=== PATIENT | female | born 1960 | race Caucasian/White ===

== ENCOUNTER 2016-11-09 00:05 | Emergency (ER) | payer MEDICAID, OTHER ==
[~2016-11-09] VITALS: Ht 165.1 cm; Wt 56.7 kg
--- NOTE | 2016-11-09 00:16 | NUR ---
TO BED 4 AMBULATORY C/O INTERMITTENT LT SIDE CP X 1 WK, WORSE TODAY, RADIATES TO LT UPPER BACK. PT APPEARS ANXIOUS. PT AAOX4 NO ACUTE DISTRESS NOTED, RESP EVEN AND UNLABORED. PLACE PT ON CARDIAC MONITORING, CONTINUOUS POX. PENDING ER MD PACHECO.
--- NOTE | 2016-11-09 00:22 | NUR ---
LAB CALLED FOR BLOOD DRAW.
[2016-11-09 00:41] LABS: BASOPHILS % (AUTO) 0.4 % (0.0-2.0); EOSINOPHILS # (AUTO) 0.3 /CMM (0.0-0.7); EOSINOPHILS % (AUTO) 4.3 % (0.0-6.0); HEMATOCRIT 34 % (33-45); HEMOGLOBIN 11.6 g/dL (11.5-14.8); LYMPHOCYTES # (AUTO) 2.5 /CMM (0.8-4.8); LYMPHOCYTES % (AUTO) 37.6 % (20.0-44.0); MEAN CORPUSCULAR HEMOGLOBIN 31 PG (26.0-33.0); MEAN CORPUSCULAR HGB CONC 34 g/dl (31.0-36.0); MEAN CORPUSCULAR VOLUME 91 fL (82-100); MONOCYTES # (AUTO) 0.5 /CMM (0.1-1.30); MONOCYTES % (AUTO) 7.6 % (2.0-12.0); NEUTROPHILS # (AUTO) 3.4 /CMM (1.8-8.9); NEUTROPHILS % (AUTO) 50.1 % (43.0-81.0); PLATELET COUNT (AUTO) 220 /CMM (150-450); RDW COEFFICIENT OF VARIATION 13.3 (11.5-15.0); RED BLOOD CELL COUNT(AUTO) 3.76 MIL/uL (4.0-5.2); WHITE BLOOD COUNT (AUTO) 6.7 K/uL (4.3-11.0)
--- NOTE | 2016-11-09 00:47 | NUR ---
Jodi mccurdy in ED - 11/09/16 at 0048 by KALI REPORT CALLED TO [facility]. WILL TRANSPORT PT VIA ACLS PROTOCOL.
[2016-11-09 00:51] LABS: CALCIUM, SERUM 8.2 mg/dL (8.5-10.1); CARBON DIOXIDE 25 mmol/L (21-32); CHLORIDE 109 mmol/L (98-107); CREATININE 0.9 mg/dL (0.6-1.3); GFR 65 mL/min (>60); GLUCOSE 113 mg/dL (74-106); POTASSIUM 3.9 mmol/L (3.5-5.1); SODIUM SERUM 145 mmol/L (136-145); UREA NITROGEN, BLOOD 13 mg/dL (7-18)
[2016-11-09] MEDS ORDERED: ASPIRIN 81 MG TAB.CHEW ONE (00:53)
[2016-11-09] MEDS ORDERED: FAMOTIDINE (20 MG) 20 MG TABLET ONE (00:53)
[2016-11-09 00:58] LABS: TROPONIN I < 0.017 ng/mL (0.00-0.056)
[2016-11-09] MEDS: FAMOTIDINE (20 MG) 20 MG TABLET PO ONE (00:59)
[2016-11-09] MEDS: ASPIRIN 325 MG TABLET PO ONE (00:59)
--- NOTE | 2016-11-09 01:26 | NUR ---
PT APPEARS ASLEEP, NO ACUTE DISTRESS NOTED, RESP EVEN AND UNLABORED. CALL LIGHT WITHIN REACH. WILL CONTINUE TO MONITOR PT CLOSELY.
--- NOTE | 2016-11-09 03:06 | NUR ---
pt pain free at this time, pending repeat troponin.
--- NOTE | 2016-11-09 04:15 | NUR ---
Patient discharged to home in stable condition. Written and verbal after care instructions given. Patient verbalizes understanding of instruction. ambulatory with a steady gait noted. pt aaox4 no acute distress noted, resp even and unlabored.
[2016-11-09 04:17] VITALS: BP 101/71
== END 2016-11-09 04:18 | disposition home or self-care (01) ==
LOC: ER 00:09
DX: R07.89 Other chest pain (principal); F41.9 Anxiety disorder, unspecified; F32.9 Major depressive disorder, single episode, unspecified; F17.200 Nicotine dependence, unspecified, uncomplicated
CPT/HCPCS: 36415; 71010; 80048; 84484 ×2; 85025; 93005 ×2; 99285; A4606; Z7610

== ENCOUNTER 2016-12-02 01:32 | Emergency (ER) | payer MEDICAID ==
[~2016-12-02] VITALS: Ht 165.1 cm; Wt 65.8 kg
--- NOTE | 2016-12-02 01:35 | NUR ---
to bed 1 ambulatory c/o L shoulder pain since yesterday, pain worse on movement. pt aaox4 no acute distress noted, resp even and unlabored. pending er md quintero.
--- NOTE | 2016-12-02 01:36 | NUR ---
er md at bedside to eval pt with orders received.
--- NOTE | 2016-12-02 02:04 | NUR ---
er md at bedside for trigger point injection to L shoulder.
--- NOTE | 2016-12-02 02:26 | NUR ---
blood drawn by development officer.
[2016-12-02] MEDS ORDERED: BUPIVACAINE 0.25% 75 MG/30 ML VIAL IJ ONE (02:30)
[2016-12-02] MEDS ORDERED: ASPIRIN 81 MG TAB.CHEW PO ONE (02:30)
[2016-12-02 02:31] LABS: BASOPHILS % (AUTO) 0.4 % (0.0-2.0); EOSINOPHILS # (AUTO) 0.4 /CMM (0.0-0.7); EOSINOPHILS % (AUTO) 4.8 % (0.0-6.0); HEMATOCRIT 35 % (33-45); HEMOGLOBIN 11.7 g/dL (11.5-14.8); LYMPHOCYTES # (AUTO) 3.2 /CMM (0.8-4.8); LYMPHOCYTES % (AUTO) 40.2 % (20.0-44.0); MEAN CORPUSCULAR HEMOGLOBIN 30 PG (26.0-33.0); MEAN CORPUSCULAR HGB CONC 34 g/dl (31.0-36.0); MEAN CORPUSCULAR VOLUME 91 fL (82-100); MONOCYTES # (AUTO) 0.5 /CMM (0.1-1.30); NEUTROPHILS # (AUTO) 3.8 /CMM (1.8-8.9); NEUTROPHILS % (AUTO) 48.6 % (43.0-81.0); PLATELET COUNT (AUTO) 234 /CMM (150-450); RED BLOOD CELL COUNT(AUTO) 3.84 MIL/uL (4.0-5.2); WHITE BLOOD COUNT (AUTO) 7.9 K/uL (4.3-11.0)
[2016-12-02 02:41] LABS: CALCIUM, SERUM 8.5 mg/dL (8.5-10.1); CARBON DIOXIDE 27 mmol/L (21-32); CHLORIDE 105 mmol/L (98-107); CREATININE 0.8 mg/dL (0.6-1.3); GFR 74 mL/min (>60); GLUCOSE 109 mg/dL (74-106); POTASSIUM 3.4 mmol/L (3.5-5.1); SODIUM SERUM 141 mmol/L (136-145); UREA NITROGEN, BLOOD 17 mg/dL (7-18)
[2016-12-02] MEDS ORDERED: ASPIRIN 81 MG TAB.CHEW ONE (02:47)
[2016-12-02 02:50] LABS: TROPONIN I < 0.017 ng/mL (0.00-0.056)
[2016-12-02 04:03] VITALS: BP 104/73
== END 2016-12-02 04:03 | disposition home or self-care (01) ==
LOC: ER 01:34
DX: M25.512 Pain in left shoulder (principal); F32.9 Major depressive disorder, single episode, unspecified; F41.9 Anxiety disorder, unspecified; F17.200 Nicotine dependence, unspecified, uncomplicated; Z79.82 Long term (current) use of aspirin
CPT/HCPCS: 36415; 71010-TC; 80048-TC; 84484-TC; 85025-TC; A4606; Z7610

== ENCOUNTER 2016-12-05 13:14 | Emergency (ER) | payer MEDICAID ==
[~2016-12-05] VITALS: Ht 167.6 cm; Wt 63.5 kg
--- NOTE | 2016-12-05 13:29 | NUR ---
PT CAME IN FROM URGENT CARE FOR DIZZINESS SINCE LAST NIGHT. REPORTS THAT SHE HASN'T BEEN EQATING GOOD LATELY. MD AT FOR EVAL. VSS. SAFETY AND COMFORT MEASURES PROVIDED. WILL MONITOR.
--- NOTE | 2016-12-05 14:19 | NUR ---
URINE SAMPLE OBTAINED, SENT.
[2016-12-05 14:48] LABS: APPEARANCE,URINE Clear (CLEAR); BILIRUBIN,URINE Negative (NEGATIVE); BLOOD, URINE Small Ery/uL (NEGATIVE); COLOR,URINE Yellow (YELLOW); KETONES,URINE Negative (NEGATIVE); LEUKOCYTE ESTERASE ,URINE Negative (NEGATIVE); NITRITE, URINE Negative (NEGATIVE); PH,URINE 8.5 (5.0-8.0); PROTEIN,URINE Negative (NEGATIVE); UGLUCOSE Negative (NEGATIVE); UROBILINOGEN,URINE 0.2 EU/dL (0.2)
--- NOTE | 2016-12-05 14:50 | NUR ---
Patient discharged to home in stable condition. Written and verbal after care instructions given. Patient verbalizes understanding of instruction. Pt ambulatory with a steady gait.
[2016-12-05 14:58] LABS: ADD URINE CULTURE NO; BACTERIA,URINE Few /HPF (None Seen); SQUAMOUS EPITHELIAL CELL,UR Few /HPF (None Seen)
--- NOTE | 2016-12-05 15:20 | NUR ---
CALLED NUTRITION FOR SANDWICH
--- NOTE | 2016-12-05 15:25 | NUR ---
PT REQUESTED FOR FOOD AND DRINK- EATING AT BS.
[2016-12-05 15:33] VITALS: BP 136/74
== END 2016-12-05 15:39 | disposition home or self-care (01) ==
LOC: ER 13:18
DX: N39.0 Urinary tract infection, site not specified (principal); R42 Dizziness and giddiness; F32.9 Major depressive disorder, single episode, unspecified; F41.9 Anxiety disorder, unspecified; F17.200 Nicotine dependence, unspecified, uncomplicated
CPT/HCPCS: 81000-TC; A4606; Z7610

== ENCOUNTER 2019-01-13 03:37 | Emergency (ER) | payer BC, MEDICAID, OTHER ==
[~2019-01-13] VITALS: Ht 165.1 cm; Wt 62.6 kg
--- NOTE | 2019-01-13 03:45 | NUR ---
Note kaz in EDM - 01/13/19 at 0420 by FRED PT TAMMIE C/O ABD PAIN W/ BLOOD IN URINE SINCE 199 TODAY. PT AXO4. RESPIRATIONS EVEN AND UNLABORED. 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
--- NOTE | 2019-01-13 03:45 | NUR ---
PT BIBSELF COMPLAINING OF LOWER ABD PAIN SINCE 199, WITH BLOOD IN URINE. PT AXO4. RESPIRATIONS EVEN AND UNLABORED. PT PUT ON THE BULK SAUSAGE CASING TIER OFF AND PULSE OX.
--- NOTE | 2019-01-13 03:47 | NUR ---
PT AMBULATORY WITH STEADY GAIT TO BATHROOM. URINE SAMPLE OBTAINED.
--- NOTE | 2019-01-13 03:57 | NUR ---
TAYLOR GASPAR AT BEDSIDE.
[2019-01-13] MEDS ORDERED: ONDANSETRON HCL/PF 4 MG/2 ML VIAL IVP ONE (04:00)
[2019-01-13] MEDS ORDERED: KETOROLAC TROMETHAMINE INJ 30 MG/ML VIAL IV ONE (04:00)
[2019-01-13] MEDS ORDERED: IV NS 0.9% 1,000 ML BAG IV ONE (04:00)
[2019-01-13] MEDS ORDERED: KETOROLAC TROMETHAMINE 15 MG/ML VIAL ONE (04:05)
[2019-01-13] MEDS ORDERED: ONDANSETRON HCL/PF 4 MG/2 ML VIAL ONE (04:05)
[2019-01-13 04:15] LABS: BASOPHILS # (AUTO) 0.1 /CMM (0.0-0.2); EOSINOPHILS % (AUTO) 2.9 % (0.0-6.0); HEMATOCRIT 39 % (33-45); HEMOGLOBIN 13.6 g/dL (11.5-14.8); LYMPHOCYTES # (AUTO) 2.8 /CMM (0.8-4.8); LYMPHOCYTES % (AUTO) 39.3 % (20.0-44.0); MEAN CORPUSCULAR HGB CONC 35 g/dl (31.0-36.0); MEAN CORPUSCULAR VOLUME 91 fL (82-100); MONOCYTES # (AUTO) 0.5 /CMM (0.1-1.30); MONOCYTES % (AUTO) 7.6 % (2.0-12.0); NEUTROPHILS # (AUTO) 3.5 /CMM (1.8-8.9); NEUTROPHILS % (AUTO) 49.2 % (43.0-81.0); PLATELET COUNT (AUTO) 261 /CMM (150-450); RED BLOOD CELL COUNT(AUTO) 4.32 MIL/uL (4.0-5.2)
[2019-01-13 04:15] LABS: APPEARANCE,URINE Turbid (CLEAR); BILIRUBIN,URINE Negative (NEGATIVE); BLOOD, URINE Large Ery/uL (NEGATIVE); COLOR,URINE Red (YELLOW); KETONES,URINE Negative (NEGATIVE); LEUKOCYTE ESTERASE ,URINE Small (NEGATIVE); NITRITE, URINE Positive (NEGATIVE); PROTEIN,URINE >=300 mg/dl (NEGATIVE); UGLUCOSE Negative (NEGATIVE); UROBILINOGEN,URINE 0.2 EU/dL (0.2)
[2019-01-13 04:23] LABS: CREATININE 0.8 mg/dL (0.6-1.3); POTASSIUM 3.8 mmol/L (3.5-5.1)
--- NOTE | 2019-01-13 04:23 | NUR ---
PT TAKENT O CT.
[2019-01-13 04:26] LABS: BACTERIA,URINE Few /HPF (None Seen); RBC,URINE TOO NUMEROUS TO COUN /HPF (0-2); SQUAMOUS EPITHELIAL CELL,UR None Seen /HPF (None Seen)
[2019-01-13 04:29] LABS: ALBUMIN 4.2 g/dL (3.4-5.0); BILIRUBIN,DIRECT 0.1 mg/dL (0.0-0.2); BILIRUBIN,TOTAL 0.6 mg/dL (0.2-1.0); TOTAL PROTEIN, SERUM 7.5 g/dL (6.4-8.2)
--- NOTE | 2019-01-13 04:36 | NUR ---
PT RETURNED FROM CT.
--- NOTE | 2019-01-13 04:40 | NUR ---
PT COMPLAINING OF PAIN, ER MD AWARE. WILL CARRY OUT ORDERS.
[2019-01-13] MEDS ORDERED: MORPHINE SULFATE INJ 2 MG/ML DISP.SYRIN ONE (04:48)
[2019-01-13] MEDS ORDERED: MORPHINE SULFATE INJ 2 MG/ML DISP.SYRIN IV ONE (05:00)
--- NOTE | 2019-01-13 05:50 | NUR ---
Patient discharged to home in stable condition. Written and verbal after care instructions given. Patient verbalizes understanding of instruction. IV removed. Catheter intact and site benign. Pressure and 4x4 applied to site. No bleeding noted. Pt instructed not to drive, ambulatory with steady gait.
[2019-01-13 06:05] VITALS: BP 122/84
== END 2019-01-13 06:06 | disposition home or self-care (01) ==
LOC: ER 03:40
DX: N39.0 Urinary tract infection, site not specified (principal); F32.9 Major depressive disorder, single episode, unspecified; F41.9 Anxiety disorder, unspecified; F17.200 Nicotine dependence, unspecified, uncomplicated; Z60.2 Problems related to living alone
CPT/HCPCS: 36415; 74176; 80048; 80076; 81001; 83690; 85025; 96374; 96375; 99284; J1885; J2270; J2405; J7030; 81000-TC

== ENCOUNTER → 2019-02-25 | Emergency (ER) | payer BC ==
--- NOTE | 2019-02-25 20:09 | NUR ---
CALLED PT IN WAITING ROOM. NO RESPONSE
--- NOTE | 2019-02-25 21:00 | NUR ---
CALLED FOR PT IN WAITING ROOM. NO RESPONSE.
--- NOTE | 2019-02-25 22:50 | NUR ---
CALLED PT IN WAITING ROOM. NO RESPONSE. WILL FOLLOW UP.
--- NOTE | 2019-02-25 23:22 | NUR ---
PATIENT LEFT WITHOUT BEING TRIAGED.
== END | disposition left against medical advice (07) ==
LOC: ER 19:30
DX: Z53.21 Procedure and treatment not carried out due to patient leaving prior to being seen by health care provider (principal)

== ENCOUNTER 2019-12-29 17:56 | Emergency (ER) | payer BC ==
[~2019-12-29] VITALS: Ht 162.6 cm; Wt 52.2 kg
[2019-12-29] MEDS ORDERED: IV NS 0.9% 1,000 ML BAG IV ONE (18:30)
[2019-12-29] MEDS ORDERED: ACETAMINOPHEN 325 MG TABLET PO ONE (18:30)
[2019-12-29 18:47] LABS: BASOPHILS % (AUTO) 0.3 % (0.0-2.0); EOSINOPHILS % (AUTO) 0.6 % (0.0-6.0); HEMATOCRIT 35 % (33-45); HEMOGLOBIN 11.8 g/dL (11.5-14.8); LYMPHOCYTES # (AUTO) 1.4 /CMM (0.8-4.8); LYMPHOCYTES % (AUTO) 9.8 % (20.0-44.0); MEAN CORPUSCULAR HGB CONC 34 g/dl (31.0-36.0); MEAN CORPUSCULAR VOLUME 91 fL (82-100); MONOCYTES # (AUTO) 1.2 /CMM (0.1-1.30); MONOCYTES % (AUTO) 8.3 % (2.0-12.0); NEUTROPHILS # (AUTO) 11.7 /CMM (1.8-8.9); PLATELET COUNT (AUTO) 230 /CMM (150-450); RED BLOOD CELL COUNT(AUTO) 3.83 MIL/uL (4.0-5.2); WHITE BLOOD COUNT (AUTO) 14.5 K/uL (4.3-11.0)
--- NOTE | 2019-12-29 18:50 | NUR ---
IV STARTED AND BLOOD WAS DRAWN. SAMPLES GIVEN TO PHELBOTOMIST AND COVID SWAB DONE AND SENT TO LAB.
[2019-12-29 18:56] LABS: CALCIUM, SERUM 8.8 mg/dL (8.5-10.1); CREATININE 0.9 mg/dL (0.6-1.3); POTASSIUM 3.7 mmol/L (3.5-5.1)
[2019-12-29] MEDS ORDERED: ACETAMINOPHEN 325 MG TABLET ONE (19:00)
--- NOTE | 2019-12-29 19:38 | NUR ---
IV removed. Catheter intact and site benign. Pressure and 4x4 applied to site. No bleeding noted.Patient discharged to home in stable condition. Written and verbal after care instructions given. Patient verbalizes understanding of instruction AND RX. PT AMBULATED OUT WITH A STEADY GAIT. VSS.
--- NOTE | 2019-12-29 19:39 | NUR ---
PT AMBULATED OUT WITH A STEADY GAIT. VSS. NAD NOTED.
[2019-12-29 19:40] VITALS: BP 111/68
--- NOTE | 2019-12-30 22:27 | NUR ---
LAB CALLED REGARDING COVID (-) RESULT.
== END 2019-12-29 19:40 | disposition home or self-care (01) ==
LOC: ER 18:00
DX: R53.81 Other malaise (principal); Z20.828 Contact with and (suspected) exposure to other viral communicable diseases; D72.829 Elevated white blood cell count, unspecified; R00.0 Tachycardia, unspecified
CPT/HCPCS: 36415; 71045; 80048; 85025; 96360; 99284; J7030; U0003

== ENCOUNTER 2020-11-30 12:40 | Emergency (ER) | payer BC ==
[~2020-11-30] VITALS: Ht 165.1 cm; Wt 68.9 kg
--- NOTE | 2020-11-30 12:55 | NUR ---
the patient presented with c/o dizziness since waking up in the morning. took meclizine w/ minimal relief. alert and oriented x4. still c/o dizziness. safety meausres taken. respiration regular and unlabored. denies sob. warm blanket provided for comfort. will continue to monitor the patient.
--- NOTE | 2020-11-30 13:22 | NUR ---
THE PATIENT TAKEN FOR CT
[2020-11-30 13:26] LABS: BASOPHILS % (AUTO) 0.6 % (0.0-2.0); EOSINOPHILS % (AUTO) 2.2 % (0.0-6.0); HEMATOCRIT 38 % (33-45); HEMOGLOBIN 12.8 g/dL (11.5-14.8); LYMPHOCYTES # (AUTO) 1.8 /CMM (0.8-4.8); LYMPHOCYTES % (AUTO) 31.7 % (20.0-44.0); MEAN CORPUSCULAR HGB CONC 34 g/dl (31.0-36.0); MEAN CORPUSCULAR VOLUME 92 fL (82-100); MONOCYTES # (AUTO) 0.4 /CMM (0.1-1.30); MONOCYTES % (AUTO) 6.7 % (2.0-12.0); NEUTROPHILS # (AUTO) 3.3 /CMM (1.8-8.9); NEUTROPHILS % (AUTO) 58.8 % (43.0-81.0); PLATELET COUNT (AUTO) 249 /CMM (150-450); RED BLOOD CELL COUNT(AUTO) 4.15 MIL/uL (4.0-5.2); WHITE BLOOD COUNT (AUTO) 5.5 K/uL (4.3-11.0)
--- NOTE | 2020-11-30 13:31 | NUR ---
patient is back from ct.
[2020-11-30 13:34] LABS: CALCIUM, SERUM 8.9 mg/dL (8.5-10.1); CARBON DIOXIDE 25 mmol/L (21-32); CHLORIDE 108 mmol/L (98-107); CREATININE 0.7 mg/dL (0.6-1.3); GLUCOSE 85 mg/dL (74-106); POTASSIUM 3.9 mmol/L (3.5-5.1); SODIUM SERUM 141 mmol/L (136-145); UREA NITROGEN, BLOOD 11 mg/dL (7-18)
[2020-11-30 13:49] LABS: ALANINE AMINOTRANSFERASE 24 U/L (12-78); ALKALINE PHOSPHATASE 70 U/L (46-116); ASPARTATE AMINOTRANSFERASE 14 U/L (15-37); BILIRUBIN,DIRECT 0.1 mg/dL (0.0-0.2); BILIRUBIN,TOTAL 0.4 mg/dL (0.2-1.0); TOTAL PROTEIN, SERUM 7.1 g/dL (6.4-8.2)
[2020-11-30] MEDS ORDERED: NEOM10DR11 OT (14:13)
[2020-11-30] MEDS ORDERED: DIAZ2TAB PO (14:13)
[2020-11-30 14:23] VITALS: BP 121/68
--- NOTE | 2020-11-30 14:23 | NUR ---
Patient discharged to home in stable condition. Written and verbal after care instructions given. Patient verbalizes understanding of instruction. The patient left ER in stable condition.
== END 2020-11-30 14:24 | disposition home or self-care (01) ==
LOC: ER 12:40
DX: R42 Dizziness and giddiness (principal); F32.9 Major depressive disorder, single episode, unspecified; F41.9 Anxiety disorder, unspecified; Z60.2 Problems related to living alone
CPT/HCPCS: 36415; 70450-TC; 80048-TC; 80076-TC; 84484-TC; 85025-TC; 85730-TC